=== PATIENT | female | born 1975 | race Caucasian/White ===

== ENCOUNTER 2025-05-25 14:37 | Observation (INO) ==
[2025-05-25] MEDS: FAMOTIDINE/PF 20 MG/2 ML VIAL IV ONE (16:04)
[2025-05-25] MEDS: 0.9 % SODIUM CHLORIDE 1,000 ML IV ONE (16:04)
[2025-05-25] MEDS: ONDANSETRON 4 MG/2 ML VIAL IV ONE (16:05)
[2025-05-25 16:13] LABS: Basophils # (Auto) 0.02 K/mcL (0.00-0.30); Basophils % (Auto) 0.1 % (0.0-2.0); Eosinophils # (Auto) 0.70 K/mcL (0.00-0.70); Eosinophils % (Auto) 4.4 % (0.0-7.0); Hematocrit 43.6 % (34.1-44.9); Hemoglobin 14.6 g/dL (11.2-15.7); Lymphocytes # (Auto) 2.53 K/mcL (1.50-4.80); Lymphocytes % (Auto) 16.0 % (15.5-49.0); Mean Corpuscular HGB Conc 33.5 g/dL (31.0-36.0); Monocytes # (Auto) 1.35 K/mcL (0.10-0.90); Monocytes % (Auto) 8.5 % (1.0-12.0); Neutrophils % (Auto) 70.8 % (38.0-78.0); Platelet Count 342 K/mcL (140-440); RBC 5.23 M/mcL (3.59-5.38); WBC 15.8 K/mcL (4.5-11.0)
[2025-05-25 16:24] LABS: Bacteria,Urine Few /hpf (0); Bilirubin,Urine Negative (Negative); Color,Urine DK. ORANGE; Glucose,Urine (UA) NEGATIVE (Negative); Ketones,Urine 40 mg/dL (Negative); Leukocyte Esterase,Urine MODERATE /uL (Negative); PH,Urine 5.5 (5.0-9.0); Protein,Urine 100 mg/dL (Negative); Specific Gravity,Urine >= 1.030 (1.000-1.035); Urobilinogen,Urine 2.0 mg/dL
[2025-05-25 16:33] LABS: ALT/SGPT 19 U/L (<40); AST/SGOT 17 U/L (<32); Albumin 3.8 gm/dL (3.2-5.2); Albumin/Globulin Ratio 1.0 (1.0-2.3); Alkaline Phosphatase 84 U/L (39-117); Anion Gap 13.0 (8.0-16.0); Bilirubin,Total 0.6 mg/dL (0.1-1.0); Blood Urea Nitrogen 17 mg/dL (6-20); Calcium 8.8 mg/dL (8.6-10.4); Carbon Dioxide 24 mmol/L (22-30); Chloride 100 mmol/L (96-108); Globulin 3.8 gm/dL (2.2-3.7); Glucose 199 mg/dL (70-105); Potassium 3.7 mmol/L (3.3-5.1); Sodium 137 mmol/L (133-145)
[2025-05-25] MEDS: CIPROFLOXACIN 400 MG/200 ML BAG IV ONE (17:32)
[2025-05-25] MEDS ORDERED: NALOXONE HCL 0.4 MG/ML VIAL IV PRN (18:01)
[2025-05-25] MEDS: metroNIDAZOLE 500 MG/100 ML BAG IV SCH (18:38)
[2025-05-25] MEDS: LACTATED RINGERS 1,000 ML IV SCH (18:38)
[2025-05-25] MEDS: metroNIDAZOLE 500 MG/100 ML BAG IV ONE (18:39)
[2025-05-25] MEDS: ONDANSETRON 4 MG/2 ML VIAL IV PRN (23:53)
[2025-05-26] MEDS: ACETAMINOPHEN 325 MG TABLET PO PRN (00:48)
[2025-05-26] MEDS: ACETAMINOPHEN 325 MG TABLET PO ONE (01:08)
[2025-05-26] MEDS ORDERED: metroNIDAZOLE 500 MG/100 ML BAG IV SCH (02:00)
[2025-05-26] MEDS: CIPROFLOXACIN 400 MG/200 ML BAG IV SCH ×2 (04:41→20:42)
[2025-05-26 06:02] LABS: Basophils # (Auto) 0.03 K/mcL (0.00-0.30); Basophils % (Auto) 0.2 % (0.0-2.0); Eosinophils # (Auto) 0.69 K/mcL (0.00-0.70); Eosinophils % (Auto) 5.5 % (0.0-7.0); Hematocrit 39.2 % (34.1-44.9); Hemoglobin 12.7 g/dL (11.2-15.7); Lymphocytes # (Auto) 2.31 K/mcL (1.50-4.80); Lymphocytes % (Auto) 18.4 % (15.5-49.0); Mean Corpuscular HGB Conc 32.4 g/dL (31.0-36.0); Monocytes # (Auto) 1.07 K/mcL (0.10-0.90); Monocytes % (Auto) 8.5 % (1.0-12.0); Neutrophils % (Auto) 67.2 % (38.0-78.0); Platelet Count 287 K/mcL (140-440); RBC 4.56 M/mcL (3.59-5.38); WBC 12.6 K/mcL (4.5-11.0)
[2025-05-26 06:24] LABS: ALT/SGPT 15 U/L (<40); AST/SGOT 13 U/L (<32); Albumin 3.2 gm/dL (3.2-5.2); Albumin/Globulin Ratio 0.9 (1.0-2.3); Alkaline Phosphatase 73 U/L (39-117); Anion Gap 10.0 (8.0-16.0); Bilirubin,Total 0.5 mg/dL (0.1-1.0); Blood Urea Nitrogen 14 mg/dL (6-20); Calcium 8.2 mg/dL (8.6-10.4); Carbon Dioxide 24 mmol/L (22-30); Chloride 103 mmol/L (96-108); Globulin 3.4 gm/dL (2.2-3.7); Glucose 176 mg/dL (70-105); Potassium 3.3 mmol/L (3.3-5.1); Sodium 137 mmol/L (133-145)
[2025-05-26] MEDS: metroNIDAZOLE 500 MG/100 ML BAG IV SCH (08:08)
[2025-05-26] MEDS ORDERED: PHENYLephrine 1 MG/10 ML SYRINGE (ANEST) ONE (10:16)
[2025-05-26] MEDS ORDERED: DEXAMETHASONE 10 MG/ML VIAL ONE (10:16)
[2025-05-26] MEDS ORDERED: ONDANSETRON 4 MG/2 ML VIAL ONE (10:16)
[2025-05-26] MEDS ORDERED: KETOROLAC 30 MG/ML VIAL ONE (10:16)
[2025-05-26] MEDS ORDERED: fentaNYL 100 MCG/2 ML VIAL ONE ×3 (10:17→13:12)
[2025-05-26] MEDS ORDERED: MIDAZOLAM 2 MG/2 ML VIAL ONE (10:17)
[2025-05-26] MEDS ORDERED: PROPOFOL 200 MG/20 ML VIAL IV ONE (10:18)
[2025-05-26] MEDS ORDERED: LABETALOL HCL 20 MG/4 ML VIAL IV ONE (12:01)
[2025-05-26] MEDS ORDERED: hydrALAZINE 20 MG/ML VIAL ONE (12:01)
[2025-05-26] MEDS ORDERED: SUGAMMADEX SODIUM 200 MG/2 ML VIAL IV ONE (12:06)
[2025-05-26] MEDS ORDERED: BENZOCAINE/MENTHOL 1 LOZENGE PO PRN (12:11)
[2025-05-26] MEDS ORDERED: fentaNYL 100 MCG/2 ML VIAL IV PRN (12:11)
[2025-05-26] MEDS ORDERED: NALOXONE HCL 0.4 MG/ML VIAL IV PRN (12:11)
[2025-05-26] MEDS ORDERED: MEPERIDINE 50 MG/ML VIAL IM PRN (12:11)
[2025-05-26] MEDS ORDERED: diphenhydrAMINE 50 MG/ML VIAL IV PRN (12:11)
[2025-05-26] MEDS ORDERED: METOPROLOL TARTRATE 5 MG/5 ML VIAL IV PRN (12:11)
[2025-05-26] MEDS ORDERED: ePHEDrine 50 MG/ML AMPUL IV PRN (12:11)
[2025-05-26] MEDS ORDERED: IPRATROPIUM/ALBUTEROL 3 ML AMPUL.NEB NEB PRN (12:11)
[2025-05-26] MEDS ORDERED: DROPERIDOL 5 MG/2 ML VIAL IV PRN (12:11)
[2025-05-26] MEDS ORDERED: ONDANSETRON 4 MG/2 ML VIAL IV PRN (12:11)
[2025-05-26] MEDS ORDERED: MEPERIDINE 25 MG/ML VIAL IV PRN (12:11)
[2025-05-26] MEDS: BUPIVACAINE W/EPI 0.25% 50 ML VIAL IJ ONE (12:26)
[2025-05-26] MEDS: LABETALOL HCL 20 MG/4 ML VIAL IV PRN (13:56)
[2025-05-26] MEDS ORDERED: ALBUTEROL SULFATE 2.5 MG/3 ML NEBULIZER NEB PRN (21:15)
[2025-05-26] MEDS: hydrALAZINE 20 MG/ML VIAL IV ONE (22:09)
[2025-05-26] MEDS: 0.9 % SODIUM CHLORIDE 10 ML SYRINGE IV SCH (22:11)
[2025-05-26] MEDS: ACETAMINOPHEN 1,000 MG/100 ML BAG IV SCH (22:14)
[2025-05-26] MEDS: 0.9 % SODIUM CHLORIDE 1,000 ML IV SCH (22:14)
[2025-05-27 06:18] LABS: Basophils # (Auto) 0.01 K/mcL (0.00-0.30); Basophils % (Auto) 0.1 % (0.0-2.0); Eosinophils # (Auto) 0 K/mcL (0.00-0.70); Eosinophils % (Auto) 0 % (0.0-7.0); Hematocrit 36.4 % (34.1-44.9); Hemoglobin 12.1 g/dL (11.2-15.7); Lymphocytes # (Auto) 1.25 K/mcL (1.50-4.80); Lymphocytes % (Auto) 8.3 % (15.5-49.0); Mean Corpuscular HGB Conc 33.2 g/dL (31.0-36.0); Monocytes # (Auto) 1.05 K/mcL (0.10-0.90); Monocytes % (Auto) 6.9 % (1.0-12.0); Neutrophils % (Auto) 84.4 % (38.0-78.0); Platelet Count 356 K/mcL (140-440); RBC 4.38 M/mcL (3.59-5.38); WBC 15.2 K/mcL (4.5-11.0)
[2025-05-27 06:45] LABS: ALT/SGPT 40 U/L (<40); AST/SGOT 37 U/L (<32); Albumin 3.2 gm/dL (3.2-5.2); Albumin/Globulin Ratio 1.0 (1.0-2.3); Alkaline Phosphatase 84 U/L (39-117); Anion Gap 10.0 (8.0-16.0); Bilirubin,Total < 0.2 mg/dL (0.1-1.0); Blood Urea Nitrogen 12 mg/dL (6-20); Calcium 8.2 mg/dL (8.6-10.4); Carbon Dioxide 22 mmol/L (22-30); Chloride 104 mmol/L (96-108); Globulin 3.1 gm/dL (2.2-3.7); Glucose 250 mg/dL (70-105); Potassium 3.8 mmol/L (3.3-5.1); Sodium 136 mmol/L (133-145)
[2025-05-27 07:24] VITALS: TEMP 97.2; O2SAT 97
[2025-05-27] MEDS: LEVOFLOXACIN 500 MG/100 ML BAG IV SCH (09:18)
[2025-05-27] MEDS: DOCUSATE SODIUM 100 MG CAPSULE PO SCH (09:19)
[2025-05-27] MEDS: ENOXAPARIN 40 MG/0.4 ML SYRINGE SQ SCH (09:19)
[2025-05-27] MEDS: ONDANSETRON 4 MG/2 ML VIAL IV PRN (09:28)
[2025-05-27] MEDS ORDERED: SENNOSIDES 1 TABLET PO SCH (21:00)
== END 2025-05-27 10:47 | disposition home or self-care (01) ==
LOC: MEDSUR 14:37 → ED 14:37 → MEDSUR 20:00
PROVIDERS: ADMIT Surgery; ATTEND Surgery